=== PATIENT | male | born 1960 ===

== ENCOUNTER 2018-09-07 13:45 | Emergency (ER) | payer OTHER ==
[~2018-09-07] VITALS: Ht 172.7 cm; Wt 88.5 kg
== END 2018-09-07 23:19 | disposition home or self-care (01) ==
LOC: ER 13:45 → CPU-OBS 13:51 → ER 23:19
DX: R07.89 Other chest pain (principal); R00.2 Palpitations
CPT/HCPCS: G0378; G0379; 93005